=== PATIENT | male | born 1985 | race Hispanic/Latino ===

== ENCOUNTER 2020-08-12 00:43 | Observation (INO) | payer OTHER ==
[2020-08-12 01:12] LABS: BASOPHILS % (AUTO) 0.4 % (0.0-5.0); HEMATOCRIT 41.2 % (42-54); LYMPHOCYTES % (AUTO) 35.1 % (21.0-51.0); MEAN CORPUSCULAR HEMOGLOBIN 33.3 pg (27.0-33.0); MEAN CORPUSCULAR VOLUME 95.2 fL (79-99); MONOCYTES % (AUTO) 10.1 % (3.0-13.0); NEUTROPHILS % (AUTO) 53.2 % (40.0-77.0); PLATELET COUNT (AUTO) 214 K/uL (130-400); RED BLOOD CELL COUNT(AUTO) 4.33 MIL/uL (4.50-6.20); RED CELL DISTRIBUTION WIDTH 11.8 % (11.0-15.5); WHITE BLOOD COUNT (AUTO) 8.3 K/uL (4.8-10.8)
[2020-08-12 01:23] LABS: CREATININE 1.1 mg/dL (0.5-1.5); POTASSIUM 3.4 mmol/L (3.5-5.1)
[2020-08-12 01:33] LABS: INR 0.93 (0.85-1.15); PARTIAL THROMBOPLASTIN TIME 25.5 SEC (26.3-35.5); PROTHROMBIN TIME 10.1 SEC (9.6-11.6)
[2020-08-12 01:37] LABS: ALBUMIN 3.8 g/dL (3.5-5.0); BILIRUBIN,TOTAL 0.2 mg/dL (0.2-1.0); TOTAL PROTEIN, SERUM 7.9 g/dL (6.0-8.3)
[2020-08-12 01:50] LABS: APPEARANCE,URINE Clear (CLEAR); BILIRUBIN,URINE Negative (NEGATIVE); COLOR,URINE Yellow (YELLOW); GLUCOSE, URINE (UA) Negative (NEGATIVE); KETONES,URINE Trace mg/dL (NEGATIVE); LEUKOCYTE ESTERASE ,URINE Trace (NEGATIVE); NITRATE,URINE Negative (NEGATIVE); OCCULT BLOOD,URINE Negative (NEGATIVE); PROTEIN,URINE POS 1+ mg/dL (NEGATIVE)
[2020-08-12 01:57] LABS: AMPHET/METH SCREEN,URINE NEGATIVE (NEGATIVE); BARBITURATE SCREEN, URINE NEGATIVE (NEGATIVE); BENZODIAZEPINES SCREEN,URINE NEGATIVE (NEGATIVE); CANNABINOID SCREEN,URINE NEGATIVE (NEGATIVE); COCAINE SCREEN,URINE NEGATIVE (NEGATIVE); OPIATE SCREEN,URINE NEGATIVE (NEGATIVE); PHENCYCLIDINE SCREEN,URINE NEGATIVE (NEGATIVE)
[2020-08-12 02:00] LABS: BACTERIA,URINE Many /HPF (None Seen); MUCUS,URINE Moderate LPF (None Seen); RBC,URINE 0-1 /HPF (0-1)
[2020-08-12 02:01] LABS: AMORPHOUS SEDIMENT,UR Few /LPF (None Seen); CALCIUM OXALATE CRYSTALS,UR Few /LPF (None Seen)
[2020-08-12] MEDS ORDERED: IOHEXOL 350 MG/ML 100ML INFUS..BTL IV ONE (02:08)
[2020-08-12] MEDS ORDERED: LACTULOSE 20 GM/30 ML UDCUP PO PRN (02:30)
[2020-08-12] MEDS ORDERED: ONDANSETRON HCL 4 MG/2 ML VIAL IV PRN (02:30)
[2020-08-12] MEDS ORDERED: ACETAMINOPHEN 325 MG TAB PO PRN ×2 (02:30)
[2020-08-12] MEDS ORDERED: LIDOCAINE HCL-MPF 1% 2ML VIAL IV PRN (02:45)
[2020-08-12] MEDS ORDERED: POTASSIUM CHLORIDE 10% ELIXIR 20 MEQ/15 ML UDCUP PO PRN (02:45)
[2020-08-12] MEDS ORDERED: POTASSIUM CHLORIDE 10MEQ/100ML 100 ML IV PRN (02:45)
[2020-08-12] MEDS ORDERED: POTASSIUM CHLORIDE 20 MEQ ERTAB PO PRN (02:45)
[2020-08-12] MEDS ORDERED: ONDANSETRON HCL 4 MG/2 ML VIAL ONE (02:46)
[2020-08-12 02:50] LABS: HEMOGLOBIN A1C 5.8 % (4.0-6.0)
[2020-08-12 02:52] LABS: CHOLESTEROL 187 mg/dL (<200); HDL CHOLESTEROL 96 mg/dL (29-71); TRIGLYCERIDES 270 mg/dL (30-200)
[2020-08-12] MEDS: SODIUM CHLORIDE 0.9% 1000ML 1,000 ML IV SCH ×3 (04:40→20:43)
[2020-08-12] MEDS ORDERED: LORAZEPAM 2 MG/ML 1 ML VIAL IVP PRN (04:45)
[2020-08-12 08:38] VITALS: BP 113/46
[2020-08-12] MEDS ORDERED: ALPRAZOLAM 0.5 MG TABLET PO SCH (09:45)
[2020-08-12] MEDS: ASPIRIN 81 MG EC TAB PO SCH (10:00)
[2020-08-12] MEDS ORDERED: CEFTRIAXONE SODIUM 500 MG VIAL IV SCH (10:18)
[2020-08-12] MEDS ORDERED: CEFTRIAXONE SODIUM 1 GM IV SCH (10:21)
[2020-08-12] MEDS: CEFTRIAXONE SODIUM 1 GM IV SCH (11:28)
[2020-08-12 12:28] VITALS: BP 98/50
[2020-08-12 16:46] VITALS: BP 120/64
[2020-08-12 20:00] VITALS: BP 132/66
[2020-08-12] MEDS ORDERED: ATORVASTATIN CALCIUM 20 MG TABLET PO SCH (21:00)
[2020-08-12 23:43] VITALS: BP 115/57
[2020-08-13 03:46] VITALS: BP 126/58
[2020-08-13 03:46] LABS: BASOPHILS % (AUTO) 0.5 % (0.0-5.0); EOSINOPHILS % (AUTO) 2.3 % (0.0-8.0); HEMATOCRIT 40.3 % (42-54); LYMPHOCYTES % (AUTO) 37.7 % (21.0-51.0); MEAN CORPUSCULAR HEMOGLOBIN 32.8 pg (27.0-33.0); MEAN CORPUSCULAR HGB CONC 34.2 g/dL (32.0-36.0); MEAN CORPUSCULAR VOLUME 95.7 fL (79-99); MONOCYTES % (AUTO) 9.1 % (3.0-13.0); NEUTROPHILS % (AUTO) 50.1 % (40.0-77.0); PLATELET COUNT (AUTO) 183 K/uL (130-400); RED BLOOD CELL COUNT(AUTO) 4.21 MIL/uL (4.50-6.20); RED CELL DISTRIBUTION WIDTH 11.8 % (11.0-15.5); WHITE BLOOD COUNT (AUTO) 7.9 K/uL (4.8-10.8)
[2020-08-13 04:05] LABS: CREATININE 0.9 mg/dL (0.5-1.5); POTASSIUM 3.7 mmol/L (3.5-5.1)
--- NOTE | 2020-08-13 04:58 | NUR ---
STATUS Pt remains on iv hydration therapy,yamil well.Denies pain or sob.No neuro deficits noted.
[2020-08-13] MEDS: SODIUM CHLORIDE 0.9% 1000ML 1,000 ML IV SCH (07:33)
[2020-08-13 07:55] VITALS: BP 128/65
[2020-08-13] MEDS: CEFTRIAXONE SODIUM 1 GM IV SCH (08:13)
[2020-08-13] MEDS: ASPIRIN 81 MG EC TAB PO SCH (09:05)
--- NOTE | 2020-08-13 09:55 | NUR ---
DR. EVELYN BRICEÑO HERE TO SEE PATIENT. RECOMMENDS ASA 81MG PO DAILY AT DISCHARGE. MD DOES NOT RECOMMEND -STATIN DRUG BECAUSE OF PATIENTS ELEVATED TOTAL CK LEVEL.
--- NOTE | 2020-08-13 11:00 | NUR ---
DISCHARGE DISCHARGE TEACHING PROVIDED TO PATIENT REGARDING RECOMMENDATIONS FOR F/U APPT WITH DR. RIVAS, DR. MARTÍN VINES, AND PRIMARY MD OF CHOICE. LIST OF FAMILY DOCTORS PROVIDED TO PATIENT. EDUCATED PROVIDED S/S OF STROKE AND WHEN TO CALL EMS. PATIENT INFORMED TO CONTINUE TAKING ASA 81MG PO DAILY. PATIENT VERBALIZED UNDERSTANDING OF DISCHARGE TEACHING. REMOVED 20G IV FROM RIGHT AC, CATHETER TIP INTACT.
== END 2020-08-13 12:11 | disposition home or self-care (01) ==
LOC: EDH 00:43 → EDHIP 00:44 → 3AH 03:25
PROVIDERS: ADMIT Hospitalist; ATTEND Hospitalist
DX: I63.9 Cerebral infarction, unspecified (principal); M33.20 Polymyositis, organ involvement unspecified; F17.210 Nicotine dependence, cigarettes, uncomplicated; F41.9 Anxiety disorder, unspecified
CPT/HCPCS: 36415 ×2; 70450; 70496; 70498; 70551; 71045; 72141; 80048; 80053; 80305; 81001; 82465; 82550 ×2; 83036; 83721; 84132; 84478; 84484; 85025 ×2; 85610; 85730; 87088; 93005; 93306; 93356; 96361 ×2; 96374; 96375; 96376; 99285; G0378 ×25; J0696 ×2; J2060; J2405; J7030; Q9967